=== PATIENT | female | born 1970 | race American Indian/Alaskan Native ===

== ENCOUNTER 2016-09-03 16:46 | Emergency (ER) | payer OTHER, BC ==
[2016-09-03 16:52] VITALS: BMI 31.6
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
[2016-09-03 17:11] VITALS: BP 138/89; PULSE 90; TEMP 98.6; O2SAT 98
[2016-09-03 17:48] VITALS: RESP 16
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
== END 2016-09-03 17:50 | disposition home or self-care (01) ==
LOC: ED 16:46
DX: M54.9 Dorsalgia, unspecified (principal); V49.49XA Driver injured in collision with other motor vehicles in traffic accident, initial encounter; Y92.410 Unspecified street and highway as the place of occurrence of the external cause

== ENCOUNTER 2017-03-30 12:15 | Observation (INO) | payer BC, OTHER ==
[2017-03-30 12:19] VITALS: BMI 30.7
--- NOTE | 2017-03-30 12:50 | ED PDOC ---
Arrival/HPI - General Chief Complaint: Chest Pain Time Seen by Provider: 03/30/17 12:16 Historian: Patient - History of Present Illness Narrative History of Present Illness (Text): 03/30/17 12:47 46 year old female, whose past medical history includes hypertension, who presents to the emergency department complaining of left sided chest pain associated with shortness of breath that began yesterday. Patient denies any fever, chills, nausea, vomiting, diarrhea, urinary symptoms, back pain, neck pain, headache, dizziness, or any other complaints. Time/Duration: Other (Yesterday) Symptom Course: Unchanged Activities at Onset: Light Context: Home Past Medical History - Provider Review Nursing Documentation Reviewed: Yes - Cardiac Hx Cardiac Disorders: Yes Hx Hypertension: Yes - Pulmonary Hx Respiratory Disorders: No - Neurological Hx Neurological Disorder: No - HEENT Hx HEENT Disorder: No - Renal Hx Renal Disorder: No - Endocrine/Metabolic Hx Endocrine Disorders: No - Hematological/Oncological Hx Blood Disorders: No - Integumentary Hx Dermatological Disorder: Yes Hx Eczema: Yes - Musculoskeletal/Rheumatological Hx Musculoskeletal Disorders: No - Gastrointestinal Hx Gastrointestinal Disorders: Yes Hx Gastroesophageal Reflux: Yes - Genitourinary/Gynecological Hx Genitourinary Disorders: No - Psychiatric Hx Psychophysiologic Disorder: Yes Hx Anxiety: Yes Hx Substance Use: No - Surgical History Hx Dilation and Curettage: Yes (1991) - Anesthesia Hx Anesthesia: Yes Hx Anesthesia Reactions: No Hx Malignant Hyperthermia: No Family/Social History - Physician Review Nursing Documentation Reviewed: Yes Family/Social History: No Known Family HX Smoking Status: Never Smoked Hx Alcohol Use: Yes Frequency of alcohol use: Socially Hx Substance Use: No Allergies/Home Meds Allergies/Adverse Reactions: Allergies No Known Allergies Allergy (Verified 09/03/16 16:54) Home Medications: Home Meds Medication Instructions Recorded Confirmed amLODIPine [Norvasc] 5 mg PO DAILY 03/30/17 03/30/17 Review of Systems - Physician Review All systems were reviewed & negative as marked: Yes - Review of Systems Constitutional: absent: Fevers, Other (Chills) Respiratory: SOB Cardiovascular: Chest Pain Gastrointestinal: absent: Diarrhea, Nausea, Vomiting Genitourinary Female: absent: Dysuria, Frequency, Hematuria Musculoskeletal: absent: Back Pain, Neck Pain Neurological: absent: Headache, Dizziness Physical Exam Vital Signs Reviewed: Yes Vital Signs Temp Pulse Resp BP Pulse Ox 03/30/17 14:39 166/110 H 03/30/17 14:03 100 H 23 170/120 H 100 03/30/17 12:15 98.2 F 98 H 24 149/117 H 98 - Systems Exam Head: Present: Atraumatic, Normocephalic Pupils: Present: PERRL Extroacular Muscles: Present: EOMI Conjunctiva: Present: Normal Mouth: Present: Moist Mucous Membranes Neck: Present: Normal Range of Motion Respiratory/Chest: Present: Clear to Auscultation, Good Air Exchange. No: Respiratory Distress, Accessory Muscle Use Cardiovascular: Present: Regular Rate and Rhythm, Normal S1, S2. No: Murmurs Abdomen: Present: Normal Bowel Sounds. No: Tenderness, Distention, Peritoneal Signs Back: Present: Normal Inspection Upper Extremity: Present: Normal Inspection. No: Cyanosis, Edema Lower Extremity: Present: Normal Inspection. No: Edema Neurological: Present: GCS=15, CN II-XII Intact, Speech Normal Skin: Present: Warm, Dry, Normal Color. No: Rashes Psychiatric: Present: Alert, Oriented x 3, Normal Insight, Normal Concentration Medical Decision Making ED Course and Treatment: 03/30/17 12:47 Impression: 46 year old female presents complaining of chest pain associated with shortness of breath that began yesterday. Pt has past medical history of hypertension. Plan: -- EKG -- Labs -- Chest X-ray -- Urinalysis -- HCG Qual Urine -- Reassess and disposition Progress Notes: EKG shows Sinus Tachycardic at 101 BPM. Interpreted by me. - Lab Interpretations Lab Results: 03/30/17 13:02 03/30/17 14:13 Lab Results 03/30/17 14:20: PT 12.2, INR 1.12 H, APTT 31.6, D-Dimer, Quantitative 203 03/30/17 14:13: Sodium 142, Potassium 4.9, Chloride 107, Carbon Dioxide 24, Anion Gap 17, BUN 14, Creatinine 0.9, Est GFR ( Amer) > 60, Est GFR (Non- Af Amer) > 60, Random Glucose 91, Calcium 9.4, Total Bilirubin 1.2, AST 22, ALT 30, Alkaline Phosphatase 84, Total Protein 8.3, Albumin 4.6, Globulin 3.7, Albumin/Globulin Ratio 1.2 03/30/17 13:40: Urine HCG, Qual Negative 03/30/17 13:40: Urine Color Yellow, Urine Appearance Clear, Urine pH 6.0, Ur Specific [place] >= 1.030, Urine Protein Trace H, Urine Glucose (UA) Negative, Urine Ketones Negative, Urine Blood Negative, Urine Nitrate Negative, Urine Bilirubin Negative, Urine Urobilinogen 1.0 H, Ur Leukocyte Esterase Negative, Urine RBC Negative, Urine WBC Negative, Ur Epithelial Cells 1 - 3, Urine Other Mucus 03/30/17 13:02: PT Cancelled, INR Cancelled, APTT Cancelled, D-Dimer, Quantitative Cancelled 03/30/17 13:02: Sodium 145, Potassium 5.6 H*, Chloride 106, Carbon Dioxide 28, Anion Gap 17, BUN 14, Creatinine 1.0, Est GFR ( Amer) > 60, Est GFR (Non- Af Amer) 59, Random Glucose 95, Calcium 9.9, Magnesium 2.2, Total Bilirubin 1.3 , AST 27, ALT 25, Alkaline Phosphatase 87, Lactate Dehydrogenase 734 H, Total Creatine Kinase 104, Troponin I < 0.01, NT-Pro-B Natriuret Pep 766 H, Total Protein 8.8 H, Albumin 4.7, Globulin 4.2, Albumin/Globulin Ratio 1.1 03/30/17 13:02: WBC 6.1, RBC 4.24, Hgb 13.6, Hct 40.1, MCV 94.6, MCH 32.1, MCHC 33.9, RDW 14.4, Plt Count 245, MPV 10.3, Gran % 52.1, Lymph % (Auto) 38.8 H, [place] % (Auto) 6.4 H, Eos % (Auto) 2.4, Baso % (Auto) 0.3, Gran # 3.20, Lymph # 2.4, [place] # 0.4, Eos # 0.2, Baso # 0.02 I have reviewed the lab results: Yes - RAD Interpretation Radiology Orders: 03/30/17 12:47 CHEST PORTABLE [RAD] Stat - EKG Interpretation Interpreted by ED Physician: Yes Type: 12 lead EKG - Medication Orders Current Medication Orders: Discontinued Medications Aspirin (Aspirin) 325 mg PO STAT STA Stop: 03/30/17 15:34 Furosemide (Lasix) 40 mg IVP STAT STA Stop: 03/30/17 14:28 Last Admin: 03/30/17 14:39 Dose: 40 mg MAR Blood Pressure Document 03/30/17 14:39 RG (Rec: 03/30/17 14:45 RG [id number]) Blood Pressure Blood Pressure (100/60-150/90) 166/110 IVP Administration Document 03/30/17 14:39 RG (Rec: 03/30/17 14:45 RG [id number]) Charges for Administration # of IVP Administrations 1 - Scribe Statement The provider has reviewed the documentation as recorded by the Luisibe Stevie Thrasher Provider Scribe Attestation: All medical record entries made by the Scribjackie were at my direction and personally dictated by me. I have reviewed the chart and agree that the record accurately reflects my personal performance of the history, physical exam, medical decision making, and the department course for this patient. I have also personally directed, reviewed, and agree with the discharge instructions and disposition. Disposition/Present on Arrival - Present on Arrival Any Indicators Present on Arrival: No History of DVT/PE: No History of Uncontrolled Diabetes: No Urinary Catheter: No History of Decub. Ulcer: No History Surgical Site Infection Following: None - Disposition Have Diagnosis and Disposition been Completed?: Yes Diagnosis: CHF (congestive heart failure), Chest pain Disposition: HOSPITALIZED Disposition Time: 02:00 Condition: STABLE Discharge Instructions (ExitCare): Heart Failure (ED), Chest Pain (ED) Forms: [employer] (Latvian)
[2017-03-30 13:12] LABS: BASO # 0.02 K/mm3 (0.0-2.0); BASO % 0.3 % (0.0-3.0); EOS # 0.2 (0.0-0.7); EOS % 2.4 % (1.5-5.0); GRAN # 3.2 (1.4-6.5); GRAN % 52.1 % (50.0-68.0); HEMATOCRIT 40.1 % (36.0-48.0); LYMPH # 2.4 (1.2-3.4); LYMPH % 38.8 % (22.0-35.0); MEAN CELL VOLUME 94.6 fl (80.0-105.0); MEAN CORPUSCULAR HEMOGLOBIN 32.1 pg (25.0-35.0); MEAN CORPUSCULAR HGB CONC 33.9 g/dl (31.0-37.0); MEAN PLATELET VOLUME 10.3 fl (7.0-11.0); MONO # 0.4 (0.1-0.6); MONO % 6.4 % (1.0-6.0); RED CELL DISTRIBUTION WIDTH 14.4 % (11.5-14.5); WHITE BLOOD COUNT 6.1 10^3/ul (4.5-11.0)
[2017-03-30 13:44] LABS: TROPONIN I < 0.01 ng/mL
[2017-03-30 13:49] LABS: URINE BILIRUBIN NEGATIVE (NEGATIVE); URINE BLOOD NEGATIVE (NEGATIVE); URINE GLUCOSE (UA) NEGATIVE (NEGATIVE); URINE KETONE NEGATIVE (NEGATIVE); URINE LEUKOCYTE ESTERASE NEGATIVE Leu/uL (NEGATIVE); URINE PROTEIN TRACE mg/dL (<30 mg/dL)
[2017-03-30 13:51] LABS: URINE APPEARANCE CLEAR (CLEAR); URINE COLOR YELLOW (YELLOW)
[2017-03-30 13:52] LABS: ALB/GLOB RATIO 1.1 (1.1-1.8); ALKALINE PHOSPHATASE 87 U/L (38-126); ALT/SGPT 25 U/L (7-56); AST/SGOT 27 U/L (14-36); BILIRUBIN,TOTAL 1.3 mg/dL (0.2-1.3); BLOOD UREA NITROGEN 14 mg/dL (7-21); CALCIUM 9.9 mg/dL (8.4-10.5); CARBON DIOXIDE 28 mmol/L (21-33); CHLORIDE 106 mmol/L (98-107); GFR AFRICAN-AMERICAN > 60; GLUCOSE,RANDOM 95 mg/dL (70-110); MAGNESIUM 2.2 mg/dL (1.7-2.2); POTASSIUM 5.6 mmol/L (3.6-5.0); SODIUM 145 mmol/L (132-148); TOTAL PROTEIN 8.8 g/dL (5.8-8.3)
[2017-03-30 13:55] LABS: URINE RBC NEGATIVE /hpf (0-2); URINE WBC NEGATIVE /hpf (0-6)
--- NOTE | 2017-03-30 14:19 | RAD ---
HISTORY: sob COMPARISON: None available. TECHNIQUE: Chest, one view. FINDINGS: LUNGS: Mild pulmonary venous congestion. No focal consolidation. Please note that chest x-ray has limited sensitivity for the detection of pulmonary masses. PLEURA: No significant pleural effusion identified. No definite pneumothorax . CARDIOVASCULAR: Cardiomegaly. OSSEOUS STRUCTURES: No acute osseous abnormality identified. VISUALIZED UPPER ABDOMEN: Unremarkable. OTHER FINDINGS: None. IMPRESSION: Mild pulmonary venous congestion. Cardiomegaly.
[2017-03-30 14:29] LABS: INR 1.12 (0.93-1.08); PARTIAL THROMBOPLASTIN TIME 31.6 Seconds (25.1-36.5)
[2017-03-30 15:32] LABS: ALB/GLOB RATIO 1.2 (1.1-1.8); ALKALINE PHOSPHATASE 84 U/L (38-126); ALT/SGPT 30 U/L (7-56); AST/SGOT 22 U/L (14-36); BILIRUBIN,TOTAL 1.2 mg/dL (0.2-1.3); BLOOD UREA NITROGEN 14 mg/dL (7-21); CALCIUM 9.4 mg/dL (8.4-10.5); CARBON DIOXIDE 24 mmol/L (21-33); CHLORIDE 107 mmol/L (98-107); GFR AFRICAN-AMERICAN > 60; GLUCOSE,RANDOM 91 mg/dL (70-110); POTASSIUM 4.9 mmol/L (3.6-5.0); SODIUM 142 mmol/L (132-148); TOTAL PROTEIN 8.3 g/dL (5.8-8.3)
--- NOTE | 2017-03-30 15:58 | CARD ---
APPROVED REPORT EKG Measurement Heart [id number] <Conclusion> Sinus tachycardia Possible Left atrial enlargement Borderline ECG
[2017-03-30 19:03] LABS: IRON 145 ug/dL (45-180)
[2017-03-31 00:06] VITALS: RESP 20; O2SAT 99
[2017-03-31 01:36] LABS: TROPONIN I < 0.01 ng/mL
--- NOTE | 2017-03-31 05:28 | HP ---
CHIEF COMPLAINT: Chest pain. HISTORY OF PRESENT ILLNESS: Ms. Jadyn Bocanegra is a 46-year-old lady with past medical history of hypertension, came to the emergency room complaining of left-sided chest pain associated with shortness of breath that began yesterday. The patient denies any fever, chills, nausea, vomiting, diarrhea, urinary symptoms, back pain, neck pain, dizziness, or any other complaints. PAST MEDICAL HISTORY: As above; hypertension, eczema, gastroesophageal reflux disease, anxiety, and D and C in 1991. FAMILY HISTORY: Father and mother noncontributory. HABITS: No smoking. No drugs. Alcohol socially. ALLERGIES: THE PATIENT IS NOT ALLERGIC TO ANY MEDICATIONS. HOME MEDICATIONS: Amlodipine. REVIEW OF SYSTEMS: The patient is seen and examined on the bedside in the emergency room. She is still complaining about shortness of breath and chest pain. No fever. No chills. No nausea, vomiting, or diarrhea. No dysuria, frequency, or hematuria. No back pain or neck pain. No headache. No dizziness. PHYSICAL EXAMINATION: VITAL SIGNS: Temperature 98.2, pulse 98, respiratory rate 24, blood pressure , and pulse oximetry 98%. HEENT: Head is normocephalic and atraumatic. Eyes; PERRLA. Extraocular movements intact. Conjunctivae clear. Nose patent. Mucous membranes moist. NECK: Supple. No carotid bruits, JVD, or thyromegaly. CHEST: Bilaterally symmetrical. HEART: S1 and S2 positive. LUNGS: Clear to auscultation. ABDOMEN: Soft. Bowel sounds are present. No organomegaly. EXTREMITIES: No edema. No cyanosis. NEUROLOGIC: The patient is awake and alert. Moving all four extremities. No focal deficits. LABORATORY DATA: White blood cell 6.1, hemoglobin 13.2, hematocrit 40.1, and platelets 245. Sodium 142, potassium 3.9, BUN 14, creatinine 0.9, and glucose 91. ASSESSMENT AND PLAN: Ms. Jadyn Bocanegra is a 46-year-old lady who was admitted with chest pain, rule out congestive heart failure, history of hypertension, and hypercholesterolemia. We admitted the patient. Ordered cardiac enzymes x3. History of hyperkalemia. Her PT is normal. Cardiology consult called. Gastrointestinal and deep venous thrombosis prophylaxis. Repeat labs. We will follow up. Amie Jo MD [facility] # [id number]
[2017-03-31 06:29] VITALS: TEMP 97.9
[2017-03-31 07:21] LABS: HEMATOCRIT 38.9 % (36.0-48.0); MEAN CELL VOLUME 93.3 fl (80.0-105.0); MEAN CORPUSCULAR HEMOGLOBIN 31.7 pg (25.0-35.0); MEAN CORPUSCULAR HGB CONC 33.9 g/dl (31.0-37.0); MEAN PLATELET VOLUME 10.5 fl (7.0-11.0); RED CELL DISTRIBUTION WIDTH 14.2 % (11.5-14.5); WHITE BLOOD COUNT 5.7 10^3/ul (4.5-11.0)
[2017-03-31 07:47] LABS: TROPONIN I < 0.01 ng/mL
[2017-03-31 08:02] LABS: ALB/GLOB RATIO 1.2 (1.1-1.8); ALKALINE PHOSPHATASE 82 U/L (38-126); ALT/SGPT 27 U/L (7-56); AST/SGOT 32 U/L (14-36); BILIRUBIN,TOTAL 1.4 mg/dL (0.2-1.3); BLOOD UREA NITROGEN 19 mg/dL (7-21); CALCIUM 9.5 mg/dL (8.4-10.5); CARBON DIOXIDE 27 mmol/L (21-33); CHLORIDE 103 mmol/L (98-107); CHOLESTEROL 188 mg/dL (130-200); GFR AFRICAN-AMERICAN > 60; GLUCOSE,RANDOM 84 mg/dL (70-110); SODIUM 140 mmol/L (132-148); TOTAL PROTEIN 7.9 g/dL (5.8-8.3)
[2017-03-31 10:22] VITALS: BP 148/96
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
--- NOTE | 2017-03-31 17:54 | CP.PCM.DIS ---
<Shanti Decker - Last Filed: 04/01/17 00:23> Provider - Provider Date of Admission: 03/30/17 15:33 Attending physician: Amie Jo MD Time Spent in preparation of Discharge (in minutes): 30 Diagnosis - Discharge Diagnosis (1) Chest pain Status: Acute (2) Hypertension Status: Chronic (3) Anxiety Status: Chronic (4) GERD (gastroesophageal reflux disease) Status: Chronic Hospital Course - Lab Results Lab Results: Most Recent Lab Values WBC 5.7 10^3/ul (4.5-11.0) 03/31/17 07:00 RBC 4.17 10^6/uL (3.5-6.1) 03/31/17 07:00 Hgb 13.2 g/dL (12.0-16.0) 03/31/17 07:00 Hct 38.9 % (36.0-48.0) 03/31/17 07:00 MCV 93.3 fl (80.0-105.0) 03/31/17 07:00 MCH 31.7 pg (25.0-35.0) 03/31/17 07:00 MCHC 33.9 g/dl (31.0-37.0) 03/31/17 07:00 RDW 14.2 % (11.5-14.5) 03/31/17 07:00 Plt Count 231 10^3/uL (120.0-450.0) 03/31/17 07:00 MPV 10.5 fl (7.0-11.0) 03/31/17 07:00 Gran % 52.1 % (50.0-68.0) 03/30/17 13:02 Lymph % (Auto) 38.8 % (22.0-35.0) H 03/30/17 13:02 [place] % (Auto) 6.4 % (1.0-6.0) H 03/30/17 13:02 Eos % (Auto) 2.4 % (1.5-5.0) 03/30/17 13:02 Baso % (Auto) 0.3 % (0.0-3.0) 03/30/17 13:02 Gran # 3.20 (1.4-6.5) 03/30/17 13:02 Lymph # 2.4 (1.2-3.4) 03/30/17 13:02 [place] # 0.4 (0.1-0.6) 03/30/17 13:02 Eos # 0.2 (0.0-0.7) 03/30/17 13:02 Baso # 0.02 K/mm3 (0.0-2.0) 03/30/17 13:02 PT 12.2 SECONDS (9.4-12.5) 03/30/17 14:20 INR 1.12 (0.93-1.08) H 03/30/17 14:20 APTT 31.6 Seconds (25.1-36.5) 03/30/17 14:20 D-Dimer, Quantitative 203 ng/mL (0-243) 03/30/17 14:20 Sodium 140 mmol/L (132-148) 03/31/17 07:00 Potassium 4.0 mmol/L (3.6-5.0) 03/31/17 07:00 Chloride 103 mmol/L (98-107) 03/31/17 07:00 Carbon Dioxide 27 mmol/L (21-33) 03/31/17 07:00 Anion Gap 14 (10-20) 03/31/17 07:00 BUN 19 mg/dL (7-21) 03/31/17 07:00 Creatinine 1.0 mg/dl (0.7-1.2) 03/31/17 07:00 Est GFR ( Amer) > 60 03/31/17 07:00 Est GFR (Non-Af Amer) 59 03/31/17 07:00 Random Glucose 84 mg/dL (70-110) 03/31/17 07:00 Hemoglobin A1c 5.1 % (4.2-6.5) 03/30/17 16:40 Calcium 9.5 mg/dL (8.4-10.5) 03/31/17 07:00 Magnesium 2.2 mg/dL (1.7-2.2) 03/30/17 13:02 Iron 145 ug/dL (45-180) 03/30/17 16:25 TIBC 383 ug/dL (265-497) 03/30/17 16:25 % Saturation 38 % (20-55) 03/30/17 16:25 Total Bilirubin 1.4 mg/dL (0.2-1.3) H 03/31/17 07:00 AST 32 U/L (14-36) 03/31/17 07:00 ALT 27 U/L (7-56) 03/31/17 07:00 Alkaline Phosphatase 82 U/L (38-126) 03/31/17 07:00 Lactate Dehydrogenase 528 U/L (333-699) 03/31/17 01:00 Total Creatine Kinase 78 U/L (35-230) 03/31/17 01:00 Troponin I < 0.01 ng/mL 03/31/17 07:00 NT-Pro-B Natriuret Pep 766 pg/mL (0-450) H 03/30/17 13:02 Total Protein 7.9 g/dL (5.8-8.3) 03/31/17 07:00 Albumin 4.3 g/dL (3.0-4.8) 03/31/17 07:00 Globulin 3.6 gm/dL 03/31/17 07:00 Albumin/Globulin Ratio 1.2 (1.1-1.8) 03/31/17 07:00 Triglycerides 82 mg/dL (35-160) 03/31/17 07:00 Cholesterol 188 mg/dL (130-200) 03/31/17 07:00 LDL Cholesterol Direct 99 mg/dL (0-129) 03/31/17 07:00 HDL Cholesterol 71 mg/dL (29-60) H 03/31/17 07:00 TSH 3rd Generation 1.30 mIU/mL (0.46-4.68) 03/31/17 07:00 Urine Color Yellow (YELLOW) 03/30/17 13:40 Urine Appearance Clear (CLEAR) 03/30/17 13:40 Urine pH 6.0 (4.7-8.0) 03/30/17 13:40 Ur Specific [place] >= 1.030 (1.005-1.035) 03/30/17 13:40 Urine Protein Trace mg/dL (<30 mg/dL) H 03/30/17 13:40 Urine Glucose (UA) Negative mg/dL (NEGATIVE) 03/30/17 13:40 Urine Ketones Negative mg/dL (NEGATIVE) 03/30/17 13:40 Urine Blood Negative (NEGATIVE) 03/30/17 13:40 Urine Nitrate Negative (NEGATIVE) 03/30/17 13:40 Urine Bilirubin Negative (NEGATIVE) 03/30/17 13:40 Urine Urobilinogen 1.0 E.U./dL (<1 E.U./dL) H 03/30/17 13:40 Ur Leukocyte Esterase Negative Jannet/uL (NEGATIVE) 03/30/17 13:40 Urine RBC Negative /hpf (0-2) 03/30/17 13:40 Urine WBC Negative /hpf (0-6) 03/30/17 13:40 Ur Epithelial Cells 1 - 3 /hpf (0-5) 03/30/17 13:40 Urine Other Mucus 03/30/17 13:40 Urine HCG, Qual Negative (NEGATIVE) 03/30/17 13:40 - Hospital Course Hospital Course: 46 yr female w/ GERD, anxiety, eczema, HTN was treated for L sided chest pain, SOB. CXR & ECG preformed. Evaluation by Doctor Chiropractic complete. Patient cleared for D/C home to follow outpatient stress test. Discharge Exam - Head Exam Head Exam: ATRAUMATIC, NORMAL INSPECTION, NORMOCEPHALIC - Eye Exam Eye Exam: EOMI, Normal appearance, PERRL Pupil Exam: NORMAL ACCOMODATION, PERRL - ENT Exam ENT Exam: Normal Exam. absent: Mucous Membranes Dry, Mucous Membranes Moist, Normal External Ear Exam, Normal Oropharynx, TM's Normal Bilaterally - Neck Exam Neck exam: Normal Inspection - Respiratory Exam Respiratory Exam: Clear to PA & Lateral, NORMAL BREATHING PATTERN, UNREMARKABLE. absent: Accessory Muscle Use, Chest Wall Tenderness, Decreased Breath Sounds, Prolonged Expiratory Phase, Rales, Rhonchi, Wheezes, Respiratory Distress, Stridor - Cardiovascular Exam Cardiovascular Exam: REGULAR RHYTHM, +S1, +S2 - GI/Abdominal Exam GI & Abdominal Exam: Normal Bowel Sounds, Unremarkable - Extremities Exam Extremities exam: full ROM - Neurological Exam Neurological exam: Alert, CN II-XII Intact, Normal Gait, Oriented x3, Reflexes Normal - Psychiatric Exam Psychiatric exam: Normal Affect, Normal Mood Discharge Plan - Discharge Medications Prescriptions: amLODIPine [Norvasc] 10 mg PO DAILY #30 tab Lisinopril [Zestril] 20 mg PO DAILY #30 tab - Follow Up Plan Condition: STABLE Disposition: HOME/ ROUTINE Instructions: Chest Pain (DC), Chest Pain (GEN), Heart Healthy Diet (DC), Hypertensive Crisis (DC) Additional Instructions: Please follow up with Dr. Jo or your regular Primary Care Physician within one week. We strongly recommend you follow up with your Doctor Chiropractic regarding your blood pressure. Please take your new prescriptions as ordered by your Physician. Norvasc 10 mg Daily, and 81mg Baby Aspirin, and 20mg Lisinopril. If symptoms return call 911 or visit your nearest Emergency Medical Facility. <Amie Jo - Last Filed: 04/01/17 09:26> Provider - Provider Date of Admission: 03/30/17 15:33 Attending physician: Amie Jo MD Hospital Course - Lab Results Lab Results: Most Recent Lab Values WBC 5.7 10^3/ul (4.5-11.0) 03/31/17 07:00 RBC 4.17 10^6/uL (3.5-6.1) 03/31/17 07:00 Hgb 13.2 g/dL (12.0-16.0) 03/31/17 07:00 Hct 38.9 % (36.0-48.0) 03/31/17 07:00 MCV 93.3 fl (80.0-105.0) 03/31/17 07:00 MCH 31.7 pg (25.0-35.0) 03/31/17 07:00 MCHC 33.9 g/dl (31.0-37.0) 03/31/17 07:00 RDW 14.2 % (11.5-14.5) 03/31/17 07:00 Plt Count 231 10^3/uL (120.0-450.0) 03/31/17 07:00 MPV 10.5 fl (7.0-11.0) 03/31/17 07:00 Gran % 52.1 % (50.0-68.0) 03/30/17 13:02 Lymph % (Auto) 38.8 % (22.0-35.0) H 03/30/17 13:02 [place] % (Auto) 6.4 % (1.0-6.0) H 03/30/17 13:02 Eos % (Auto) 2.4 % (1.5-5.0) 03/30/17 13:02 Baso % (Auto) 0.3 % (0.0-3.0) 03/30/17 13:02 Gran # 3.20 (1.4-6.5) 03/30/17 13:02 Lymph # 2.4 (1.2-3.4) 03/30/17 13:02 [place] # 0.4 (0.1-0.6) 03/30/17 13:02 Eos # 0.2 (0.0-0.7) 03/30/17 13:02 Baso # 0.02 K/mm3 (0.0-2.0) 03/30/17 13:02 PT 12.2 SECONDS (9.4-12.5) 03/30/17 14:20 INR 1.12 (0.93-1.08) H 03/30/17 14:20 APTT 31.6 Seconds (25.1-36.5) 03/30/17 14:20 D-Dimer, Quantitative 203 ng/mL (0-243) 03/30/17 14:20 Sodium 140 mmol/L (132-148) 03/31/17 07:00 Potassium 4.0 mmol/L (3.6-5.0) 03/31/17 07:00 Chloride 103 mmol/L (98-107) 03/31/17 07:00 Carbon Dioxide 27 mmol/L (21-33) 03/31/17 07:00 Anion Gap 14 (10-20) 03/31/17 07:00 BUN 19 mg/dL (7-21) 03/31/17 07:00 Creatinine 1.0 mg/dl (0.7-1.2) 03/31/17 07:00 Est GFR ( Amer) > 60 03/31/17 07:00 Est GFR (Non-Af Amer) 59 03/31/17 07:00 Random Glucose 84 mg/dL (70-110) 03/31/17 07:00 Hemoglobin A1c 5.1 % (4.2-6.5) 03/30/17 16:40 Calcium 9.5 mg/dL (8.4-10.5) 03/31/17 07:00 Magnesium 2.2 mg/dL (1.7-2.2) 03/30/17 13:02 Iron 145 ug/dL (45-180) 03/30/17 16:25 TIBC 383 ug/dL (265-497) 03/30/17 16:25 % Saturation 38 % (20-55) 03/30/17 16:25 Total Bilirubin 1.4 mg/dL (0.2-1.3) H 03/31/17 07:00 AST 32 U/L (14-36) 03/31/17 07:00 ALT 27 U/L (7-56) 03/31/17 07:00 Alkaline Phosphatase 82 U/L (38-126) 03/31/17 07:00 Lactate Dehydrogenase 528 U/L (333-699) 03/31/17 01:00 Total Creatine Kinase 78 U/L (35-230) 03/31/17 01:00 Troponin I < 0.01 ng/mL 03/31/17 07:00 NT-Pro-B Natriuret Pep 766 pg/mL (0-450) H 03/30/17 13:02 Total Protein 7.9 g/dL (5.8-8.3) 03/31/17 07:00 Albumin 4.3 g/dL (3.0-4.8) 03/31/17 07:00 Globulin 3.6 gm/dL 03/31/17 07:00 Albumin/Globulin Ratio 1.2 (1.1-1.8) 03/31/17 07:00 Triglycerides 82 mg/dL (35-160) 03/31/17 07:00 Cholesterol 188 mg/dL (130-200) 03/31/17 07:00 LDL Cholesterol Direct 99 mg/dL (0-129) 03/31/17 07:00 HDL Cholesterol 71 mg/dL (29-60) H 03/31/17 07:00 Vitamin B12 793 pg/mL (239-931) 03/31/17 07:00 Folate 4.1 ng/mL 03/31/17 07:00 TSH 3rd Generation 1.30 mIU/mL (0.46-4.68) 03/31/17 07:00 Urine Color Yellow (YELLOW) 03/30/17 13:40 Urine Appearance Clear (CLEAR) 03/30/17 13:40 Urine pH 6.0 (4.7-8.0) 03/30/17 13:40 Ur Specific [place] >= 1.030 (1.005-1.035) 03/30/17 13:40 Urine Protein Trace mg/dL (<30 mg/dL) H 03/30/17 13:40 Urine Glucose (UA) Negative mg/dL (NEGATIVE) 03/30/17 13:40 Urine Ketones Negative mg/dL (NEGATIVE) 03/30/17 13:40 Urine Blood Negative (NEGATIVE) 03/30/17 13:40 Urine Nitrate Negative (NEGATIVE) 03/30/17 13:40 Urine Bilirubin Negative (NEGATIVE) 03/30/17 13:40 Urine Urobilinogen 1.0 E.U./dL (<1 E.U./dL) H 03/30/17 13:40 Ur Leukocyte Esterase Negative Jannet/uL (NEGATIVE) 03/30/17 13:40 Urine RBC Negative /hpf (0-2) 03/30/17 13:40 Urine WBC Negative /hpf (0-6) 03/30/17 13:40 Ur Epithelial Cells 1 - 3 /hpf (0-5) 03/30/17 13:40 Urine Other Mucus 03/30/17 13:40 Urine HCG, Qual Negative (NEGATIVE) 03/30/17 13:40 - Hospital Course Hospital Course: pt is seen and examined at bed side . agreed all above . dc home cardiology cl the pt to go home . work up as out pt . f/u with pcp next w.
[2017-03-31 17:58] LABS: FOLATE 4.1 ng/mL
[2017-03-31 18:16] VITALS: PULSE 80
== END 2017-03-31 17:39 | disposition home or self-care (01) ==
LOC: ED 12:15 → ERH 15:33 → INTOOBSV 15:33 → ERH 16:02 → 3RSO 17:20
PROVIDERS: ADMIT Internal Medicine; ATTEND Internal Medicine
DX: R07.9 Chest pain, unspecified (principal); E66.3 Overweight; I10 Essential (primary) hypertension; F41.9 Anxiety disorder, unspecified; K21.9 Gastro-esophageal reflux disease without esophagitis; E78.00 Pure hypercholesterolemia, unspecified; L30.9 Dermatitis, unspecified; R40.2412 Glasgow coma scale score 13-15, at arrival to emergency department
CPT/HCPCS: 36415; 71010; 80053; 80061; 81001; 82550; 82607; 82746; 83036; 83540; 83550; 83615; 83735; 83880; 84443; 84484; 84703; 85025; 85027; 85378; 85610; 85730; 93005; 96374; 99283; G0378; J1940